=== PATIENT | male | born 1985 ===

== ENCOUNTER 2023-06-11 10:06 | Day surgery (SDC) | payer OTHER ==
[2023-06-11] MEDS ORDERED: CEFAZOLIN SODIUM 1,000 MG VIAL ONE (12:05)
[2023-06-11] MEDS ORDERED: LIDOCAINE HCL/EPINEPHRINE 10MG/ML 1% 50ML IJ ONE ×2 (12:19→13:15)
[2023-06-11] MEDS ORDERED: BUPIVACAINE HCL/PF 0.5% 30ML ML ONE (12:19)
[2023-06-11] MEDS ORDERED: LIDOCAINE HCL/EPINEPHRINE 50ML VIAL IJ ONE (12:19)
[2023-06-11] MEDS ORDERED: KETOROLAC TROMETHAMINE 60 MG VIAL IM ONE (13:15)
[2023-06-11] MEDS ORDERED: BUPIVACAINE HCL 30 ML VIAL IJ ONE (13:15)
[2023-06-11] MEDS ORDERED: CEFAZOLIN SODIUM 1,000 MG VIAL IV SCH (13:15)
[2023-06-11] MEDS ORDERED: KETOROLAC TROMETHAMINE 30 MG VIAL IV ONE (13:30)
[2023-06-11] MEDS ORDERED: KETOROLAC TROMETHAMINE 30 MG VIAL IJ ONE (13:30)
[2023-06-11] MEDS ORDERED: KETOROLAC TROMETHAMINE 30 MG VIAL ONE (13:33)
== END 2023-06-11 17:00 | disposition home or self-care (01) ==
LOC: CIR.AMB 10:06
PROVIDERS: ATTEND Orthopaedic Surgery
DX: S42.141A Displaced fracture of glenoid cavity of scapula, right shoulder, initial encounter for closed fracture (principal); M24.111 Other articular cartilage disorders, right shoulder
CPT/HCPCS: 23585; 29806; L8699